=== PATIENT | female | born 1930 | race African-American/Black ===

== ENCOUNTER 2018-06-10 16:37 | Inpatient (IN) | payer MEDICARE, OTHER ==
[2018-06-10] VITALS (11 sets, daily range): BP systolic 111–134; BP diastolic 38–98
[~2018-06-10] VITALS: Ht 167.6 cm; Wt 75.7 kg
--- NOTE | 2018-06-10 16:40 | NUR ---
PT BIB [facility],SYNCOPAL EPISODE WHILE AT THE POST OFFICE,12 LEAD EKG SHOWED AFIB, PT IS AAOX4, NOT IN RESPIRATORY DISTRESS, HOOKED TO MONITOR, KEPT RESTED AND COMFORTABLE, SEEN AND EXAMINED BY DR. HAYNES.
[2018-06-10] MEDS ORDERED: DILTIAZEM HCL 50 MG IV ONE (17:47)
[2018-06-10] MEDS ORDERED: DILTIAZEM HCL 25 MG IV ONE ×2 (17:47→18:44)
[2018-06-10] MEDS ORDERED: HYDR5SUS PO (17:50)
[2018-06-10 17:58] LABS: BASOPHILS % (AUTO) 0.6 % (0.0-2.0); EOSINOPHILS % (AUTO) 1.1 % (0.0-6.0); HEMATOCRIT 34 % (33-45); HEMOGLOBIN 10.5 g/dL (11.5-14.8); LYMPHOCYTES # (AUTO) 1.1 /CMM (0.8-4.8); LYMPHOCYTES % (AUTO) 19.1 % (20.0-44.0); MEAN CORPUSCULAR HGB CONC 31 g/dl (31.0-36.0); MEAN CORPUSCULAR VOLUME 70 fL (82-100); MONOCYTES # (AUTO) 0.6 /CMM (0.1-1.30); MONOCYTES % (AUTO) 10.2 % (2.0-12.0); NEUTROPHILS # (AUTO) 3.8 /CMM (1.8-8.9); PLATELET COUNT (AUTO) 240 /CMM (150-450); RED BLOOD CELL COUNT(AUTO) 4.76 MIL/uL (4.0-5.2); WHITE BLOOD COUNT (AUTO) 5.6 K/uL (4.3-11.0)
--- NOTE | 2018-06-10 17:58 | NUR ---
LABS DRAWNED AND SENT TO LAB.
[2018-06-10] MEDS ORDERED: DILTIAZEM HCL 25 MG IV IV ONE ×2 (18:00→18:30)
[2018-06-10 18:05] LABS: CALCIUM, SERUM 9.1 mg/dL (8.5-10.1); CARBON DIOXIDE 28 mmol/L (21-32); CHLORIDE 99 mmol/L (98-107); CREATININE 1.3 mg/dL (0.6-1.3); GLUCOSE 203 mg/dL (74-106); POTASSIUM 4.9 mmol/L (3.5-5.1); SODIUM SERUM 132 mmol/L (136-145); UREA NITROGEN, BLOOD 22 mg/dL (7-18)
[2018-06-10 18:18] LABS: ALANINE AMINOTRANSFERASE 18 U/L (12-78); ALBUMIN 3.4 g/dL (3.4-5.0); ALKALINE PHOSPHATASE 94 U/L (46-116); ASPARTATE AMINOTRANSFERASE 16 U/L (15-37); B-TYPE NATRIURETIC PEPTIDE 3636 PG/ML (0-125); BILIRUBIN,DIRECT 0.2 mg/dL (0.0-0.2); BILIRUBIN,TOTAL 0.7 mg/dL (0.2-1.0); TOTAL PROTEIN, SERUM 8.1 g/dL (6.4-8.2)
--- NOTE | 2018-06-10 18:45 | NUR ---
RADIOLOGY AT BEDSIDE FOR XRAY.
--- NOTE | 2018-06-10 19:24 | NUR ---
REPORT GIVEN TO RADHA LIMON FOR JEAN CLAUDE. STILL FOR DILTIAZEM DRIP TITRATE TO EFFECT.
[2018-06-10] MEDS ORDERED: DILTIAZEM HCL IV 125 MG in IV NS 0.9% 100 ML IV PRN ×2 (19:30→22:30)
--- NOTE | 2018-06-10 20:35 | NUR ---
report given to cary davey for continuation of care.
--- NOTE | 2018-06-10 20:59 | NUR ---
pt to icu via ana with rn and emt.
--- NOTE | 2018-06-10 21:00 | NUR ---
MARINE DESIGNER: RECEIVED PT A/O X 3. ON ROOM AIR WT NO ACUTE DISTRESS. NO C/O PAIN. A. FIB WT RVR ON RETANNER. LEFT AC IV SITE INFUSING CARDIZEM DRIP AT 15MG/HR. NO S/S OF INFILTRATION. AFEBRILE. HOB AT 45 DEGREES. SAFETY PRECAUTION NOTED. CALL LIGHT KEPT WITHIN REACH. AWAITING ADMISSION ORDERS.
[2018-06-10] MEDS ORDERED: ZOLPIDEM TARTRATE 5 MG TABLET PO PRN (21:30)
[2018-06-10] MEDS ORDERED: MAGNESIUM HYDROXIDE 30 ML UDC PO PRN (21:30)
[2018-06-10] MEDS ORDERED: ACETAMINOPHEN 325 MG TABLET PO PRN (21:30)
[2018-06-10] MEDS ORDERED: Z GUARD REMEDY 2 OZ OINT TP PRN (21:30)
[2018-06-10] MEDS ORDERED: ONDANSETRON HCL/PF 4 MG/2 ML VIAL IVP PRN (21:30)
[2018-06-10] MEDS ORDERED: HYDROCODONE/APAP 5/325MG 1 EACH TABLET PO PRN (21:30)
[2018-06-10] MEDS ORDERED: ENOXAPARIN SODIUM 30 MG/0.3 ML DISP.SYRIN SQ ONE (22:00)
[2018-06-10] MEDS ORDERED: IV NS 0.9% 1,000 ML IV PRN (23:00)
[2018-06-10] MEDS ORDERED: IV NS 0.9% 500 ML IV ONE (23:00)
[2018-06-10] MEDS ORDERED: HYDROCODONE BIT/HOMATROPINE 5 ML UDC PO PRN (23:00)
[2018-06-11] VITALS (36 sets, daily range): BP systolic 52–156; BP diastolic 29–100
--- NOTE | 2018-06-11 01:45 | NUR ---
WEB PRODUCTION MANAGER: PT. CONVERTED TO SR WT OCCASIONAL PACs SINCE 116. DECREASED CARDIZEM DRIP TO 10MG/HR. WILL CONTINUE TO MONITOR.
--- NOTE | 2018-06-11 04:40 | NUR ---
DIRECTOR PRODUCT: TRACY, ANDREI UPDATED PT. CARDIAC RHYTHM STILL NSR WT HR IN THE 70s TO 80s SINCE 116 AND CARDIZEM DRIP HELD AT THIS TIME. COST ACCOUNTING CLERK WT ORDER TO DC CARDIZEM AND INFORM HER IF HR GOES UP AGAIN. NOTED AND CARRIED OUT.
[2018-06-11 04:55] LABS: BASOPHILS % (AUTO) 0.7 % (0.0-2.0); EOSINOPHILS % (AUTO) 1.8 % (0.0-6.0); HEMATOCRIT 28 % (33-45); HEMOGLOBIN 8.9 g/dL (11.5-14.8); LYMPHOCYTES # (AUTO) 1.1 /CMM (0.8-4.8); LYMPHOCYTES % (AUTO) 29.6 % (20.0-44.0); MEAN CORPUSCULAR HGB CONC 32 g/dl (31.0-36.0); MEAN CORPUSCULAR VOLUME 70 fL (82-100); MONOCYTES # (AUTO) 0.5 /CMM (0.1-1.30); MONOCYTES % (AUTO) 12.8 % (2.0-12.0); NEUTROPHILS # (AUTO) 2.1 /CMM (1.8-8.9); NEUTROPHILS % (AUTO) 55.1 % (43.0-81.0); PLATELET COUNT (AUTO) 227 /CMM (150-450); WHITE BLOOD COUNT (AUTO) 3.8 K/uL (4.3-11.0)
[2018-06-11 05:08] LABS: CHOLESTEROL 145 mg/dL (<200); HDL CHOLESTEROL 54 mg/dL (40-60); LDL 86 mg/dL (0-99); TRIGLYCERIDES 51 mg/dL (30-150)
[2018-06-11 05:11] LABS: CALCIUM, SERUM 8.4 mg/dL (8.5-10.1); CARBON DIOXIDE 26 mmol/L (21-32); CHLORIDE 100 mmol/L (98-107); GLUCOSE 189 mg/dL (74-106); PHOSPHORUS 3.1 mg/dL (2.5-4.9); POTASSIUM 4.3 mmol/L (3.5-5.1); SODIUM SERUM 134 mmol/L (136-145); UREA NITROGEN, BLOOD 19 mg/dL (7-18)
[2018-06-11 05:30] LABS: LYMPHOCYTES % (MANUAL) 28 % (16-48); MONOCYTES % (MANUAL) 10 % (0-11.0)
[2018-06-11 05:31] LABS: NEUTROPHILS % (MANUAL) 62 (42-76)
--- NOTE | 2018-06-11 06:45 | NUR ---
INSPECTOR CANNED FOOD RECONDITIONING: STILL NSR WT HR IN THE 70s. NO ACUTE DISTRESS, NO C/O PAIN. ALL NEEDS MET. WILL ENDORSE TO DAY SHIFT FOR CONTINUITY OF CARE.
[2018-06-11 07:36] LABS: THYROID STIMULATING HORMONE 1.707 uIU/mL (0.358-3.74)
--- NOTE | 2018-06-11 07:45 | NUR ---
NUCLEAR MEDICAL TECH: pt.is A/Ox3, no c/o now, no pain, O2sat. WNL r/a, SR now, SBP over 100 below 160, IVF 75ml/h NS, was in room/updated by night nurse, ordered: EKG, 2D echo, see new orders, transfer to Tele
[2018-06-11] MEDS ORDERED: DEXTROSE 50%-WATER 50 ML DISP.SYRIN IV PRN (08:00)
[2018-06-11] MEDS ORDERED: INSULIN REGULAR, HUMAN 100 UNIT/ML 3 ML VIAL SQ PRN (08:00)
[2018-06-11] MEDS ORDERED: DRONEDARONE HYDROCHLORIDE 400 MG TABLET PO SCH (09:00)
--- NOTE | 2018-06-11 10:00 | NUR ---
SCALE ASSEMBLY SET UP WORKER: pt.wants to go home, refused to be transfer and continue Tx, charge nurse notified, called Angus Lee NP and confirmed: ok to let pt.go f/u leaving the hospital against medical advice and treatment form
--- NOTE | 2018-06-11 10:30 | NUR ---
ATTENDANT SELF SERVICE STORE: Form AMA is signed by pt., notified re pt.VS, pt.risks, pt. is able to ambulate, said: I am ok to go, charge nurse is aware
--- NOTE | 2018-06-11 10:40 | NUR ---
CUSTOMER SALES SERVICE MANAGER: supervisor coating was notified by charge nurse
--- NOTE | 2018-06-11 10:55 | NUR ---
HYPERBARIC NURSE: pt.is transferred to [facility], helped to call taxi, security is aware
[2018-06-11] MEDS ORDERED: BLOOD SUGAR DIAGNOSTIC 1 EACH STRIP IN SCH (12:00)
--- NOTE | 2018-06-11 12:00 | NUR ---
SYSTEMS ANALYST DEVELOPER: message for ANDREI Lee was sent re all above
[2018-06-11] MEDS ORDERED: ENOXAPARIN SODIUM 40 MG/0.4 ML DISP.SYRIN SQ SCH (21:00)
== END 2018-06-11 11:00 | disposition left against medical advice (07) | DRG 309 ==
LOC: ER 16:43 → ICU 20:58
PROVIDERS: ADMIT Nurse Practitioner Acute Care; ATTEND Nurse Practitioner Acute Care
DX: I48.91 Unspecified atrial fibrillation (principal); E87.1 Hypo-osmolality and hyponatremia; E11.65 Type 2 diabetes mellitus with hyperglycemia; D50.9 Iron deficiency anemia, unspecified; R79.89 Other specified abnormal findings of blood chemistry; Z91.14 Patient's other noncompliance with medication regimen
CPT/HCPCS: 36415; 71045-TC; 80048-TC; 80061-TC; 80076-TC; 82728-TC; 83540-TC; 83735-TC; 83880; 84100-TC; 84439-TC; 84443-TC; 84484-TC; 85025-TC; 85730-TC; 87081-TC; 93307-TC; G0378; J1650; J1815; J3490; J7030; J7040